=== PATIENT | female | born 1990 | race Caucasian/White ===

== ENCOUNTER 2018-04-05 23:04 | Emergency (ER) | payer BC ==
--- NOTE | 2018-04-06 01:14 | ER Document Report ---
ED Medical Screen (RME) - General Chief Complaint: Urinary Problem Stated Complaint: PAINFUL URINATION Time Seen by Provider: 04/06/18 01:11 Notes: Patient is a 27-year-old female that comes to the emergency department for chief complaint of painful urination for the past 2 days and now she has developed bilateral flank pain, nausea, and chills. She denies vomiting or fever. She denies vaginal bleeding or discharge. She is on control. She denies history of kidney stones. She denies any daily medications. TRAVEL OUTSIDE OF THE [place] IN LAST 30 DAYS: No Physical Exam - Vital signs Vitals: Temp Pulse Resp BP Pulse Ox 98.5 F 75 20 130/78 H 100 04/05/18 23:16 04/05/18 23:16 04/05/18 23:16 04/05/18 23:16 04/05/18 23:16 - Abdominal Tenderness: Tender - Minimal generalized lower abdominal tenderness - Back Back: CVA tenderness - Bilateral mild CVA tenderness Course - Vital Signs Vital signs: Temp Pulse Resp BP Pulse Ox 98.5 F 75 20 130/78 H 100 04/05/18 23:16 04/05/18 23:16 04/05/18 23:16 04/05/18 23:16 04/05/18 23:16
[2018-04-06 04:26] LABS: APPEARANCE,URINE SLIGHTLY-CLOUDY; BILIRUBIN,URINE NEGATIVE (NEGATIVE); COLOR,URINE STRAW; GLUCOSE, URINE NEGATIVE (NEGATIVE); KETONES,URINE NEGATIVE (NEGATIVE); LEUKOCYTE ESTERASE,URINE MODERATE (NEGATIVE); NITRITE,URINE NEGATIVE (NEGATIVE); PROTEIN,URINE 30 mg/dL (NEGATIVE); URINE SPECIFIC GRAVITY 1.012; UROBILINOGEN,URINE NEGATIVE mg/dL (<2.0)
--- NOTE | 2018-04-06 04:58 | ER Document Report ---
ED GI/ - General Chief Complaint: Urinary Problem Stated Complaint: PAINFUL URINATION Time Seen by Provider: 04/06/18 01:11 Notes: Pt. is a 27 year old female c/o dysuria gradually worsening over the last two days. Stated intermittent dysuria yesterday which had increased today and now with urinary frequency. Stated BL lower back pain started this morning as well. Stated throughout the day her lower back pain has increased. Stated she was going to wait to go to PCP in the morning, but the urinary frequency and dull ache in superpubic area brought her to the ED. Pt. denies vaginal d/c or itching. Stated no recent new sexual partners. Denies vomiting or fever. H/O UTI over a year ago stated same symptoms then. PMH: none Meds: OC Allergies: Codeine Surgeries: none LMP: One week ago She denies smoking history, denies illicit drug use, admits to occasional alcohol use. TRAVEL OUTSIDE OF THE [place] IN LAST 30 DAYS: No Past Medical History - General Information source: Patient - Social History Smoking Status: Never Smoker Chew tobacco use (# tins/day): No Frequency of alcohol use: Occasional Drug Abuse: None Lives with: Family Family History: Reviewed & Not Pertinent Patient has suicidal ideation: Yes Patient has homicidal ideation: Yes Renal/ Medical History: Denies: Hx Peritoneal Dialysis Review of Systems - Review of Systems Constitutional: See HPI EENT: No symptoms reported Cardiovascular: No symptoms reported Respiratory: No symptoms reported Gastrointestinal: See HPI Genitourinary: See HPI Female Genitourinary: See HPI Musculoskeletal: No symptoms reported Skin: No symptoms reported Hematologic/Lymphatic: No symptoms reported Neurological/Psychological: No symptoms reported Physical Exam - Vital signs Vitals: Temp Pulse Resp BP Pulse Ox 98.5 F 75 20 130/78 H 100 04/05/18 23:16 04/05/18 23:16 04/05/18 23:16 04/05/18 23:16 04/05/18 23:16 - Notes Notes: GENERAL: Alert, interacts well. No acute distress. HEAD: Normocephalic, atraumatic. EYES: Pupils equal, round, and reactive to light. Extraocular movements intact. ENT: Oral mucosa moist, tongue midline. NECK: Full range of motion. Supple. Trachea midline. LUNGS: Clear to auscultation bilaterally, no wheezes, rales, or rhonchi. No respiratory distress. HEART: Regular rate and rhythm. No murmur ABDOMEN: Soft, non-tender. Non-distended. Bowel sounds present in all 4 quadrants. Minor suprapubic tenderness. EXTREMITIES: Moves all 4 extremities spontaneously. No edema, normal radial and dorsalis pedis pulses bilaterally. No cyanosis. BACK: no cervical, thoracic, lumbar midline tenderness. No saddle anesthesia, normal distal neurovascular exam. Minor BL CVA tenderness. NEUROLOGICAL: Alert and oriented x3. Normal speech. PSYCH: Normal affect, normal mood. SKIN: Warm, dry, normal turgor. No rashes or lesions noted. Course - Re-evaluation Re-evalutation: Discussed with patient urine results. Due to gradual onset of pain and dysuria , no history of kidney stones-that pathology unlikely. We will treat for urinary tract infection. While in emergency room patient stated this afternoon she was a little bit nauseated but did not vomit. Will treat for nausea and pain. Will treat as pyelonephritis. Discussed with patient need to return to the emergency room should she start with a fever, increased abdominal pain, uncontrolled vomiting, or any other concerning symptoms. - Vital Signs Vital signs: Temp Pulse Resp BP Pulse Ox 98.0 F 59 L 16 126/57 H 100 04/06/18 05:24 04/06/18 05:24 04/06/18 05:24 04/06/18 05:24 04/06/18 05:24 - Laboratory Laboratory results interpreted by me: 04/06/18 04:10 Urine Protein 30 H Urine Blood MODERATE H Ur Leukocyte Esterase MODERATE H Discharge - Discharge Clinical Impression: Urinary tract infection Qualifiers: Urinary tract infection type: acute pyelonephritis Qualified Code(s): N10 - Acute pyelonephritis Condition: Stable Disposition: HOME, SELF-CARE Instructions: Cephalexin ([facility]), Urinary Tract Infection ([facility]) Additional Instructions: You have been seen and treated in the emergency room for a urinary tract infection. Please return to the emergency room should you develop a fever, vomiting, increased lower back pain, or abdominal pain. Return with any other concerning symptoms. Please follow-up with your primary care in the next 24-48 hours. Take medications as prescribed. Prescriptions: Ketorolac Tromethamine [Toradol 10 mg Tablet] 10 mg PO Q8HP PRN #24 tablet PRN Reason: Cephalexin Monohydrate [Keflex 500 mg Capsule] 500 mg PO TID #21 capsule
[2018-04-06] MEDS ORDERED: CEFTRIAXONE INJ 1000 MG VIAL IM ONE (04:59)
[2018-04-06] MEDS ORDERED: ONDANSETRON ODT 4 MG TAB (6 TAB/ER DISP) PO PRN (04:59)
[2018-04-06] MEDS ORDERED: KETOROLAC TROMETHAMINE 10 MG TABLET PO ONE (04:59)
[2018-04-06 05:25] VITALS: BP 126/57
== END 2018-04-06 05:25 | disposition home or self-care (01) ==
LOC: ER 23:04
DX: N10 Acute pyelonephritis (principal)
CPT/HCPCS: 99283; 96372; 87086; 81025; 87088; 81001; 87186; J0696; J3490

== ENCOUNTER 2019-02-01 23:49 | Emergency (ER) | payer BC ==
[2019-02-02 00:28] VITALS: BP 139/65
[2019-02-02] MEDS ORDERED: CETIRIZINE 10 MG TABLET PO ONE (01:57)
[2019-02-02] MEDS ORDERED: DEXAMETHASONE 4 MG TABLET PO ONE (01:57)
--- NOTE | 2019-02-02 02:02 | ER Document Report ---
HPI - HPI Time Seen by Provider: 02/02/19 01:56 Pain Level: 4 Context: Patient is a 28-year-old female with a history of frequent sinus infection who presents to the emergency department with head pain and facial pain. Patient states that for 1 week she has had sinus pressure and discomfort. Patient states that does not feel like her normal sinus infections. Patient states she is attempted to use ibuprofen, Flonase and Claritin with minimal relief. Patient states around 9 PM tonight her symptoms started it worse as she felt inflamed inside of her nose as well as around her facial area. Patient denies ear pain, nasal drainage, headache or eye pain. Patient denies fever. - NEURO Neurology: REPORTS: Headache - REPRODUCTIVE Reproductive: DENIES: : Past Medical History - General Information source: Patient - Social History Smoking Status: Never Smoker Cigarette use (# per day): No Frequency of alcohol use: Occasional Drug Abuse: None Lives with: Family Family History: Reviewed & Not Pertinent Patient has suicidal ideation: No Patient has homicidal ideation: No - Past Medical History Cardiac Medical History: Reports: None Pulmonary Medical History: Reports: None EENT Medical History: Reports: Other - frequent sinus infection Neurological Medical History: Reports: None Endocrine Medical History: Reports: None Renal/ Medical History: Reports: None. Denies: Hx Peritoneal Dialysis Malignancy Medical History: Reports: None GI Medical History: Reports: None Musculoskeletal Medical History: Reports None Skin Medical History: Reports None Psychiatric Medical History: Reports: None Traumatic Medical History: Reports: None Infectious Medical History: Reports: None Past Surgical History: Reports: Hx Orthopedic Surgery - lt knee ACL repair Vertical Provider Document - CONSTITUTIONAL Agree With Documented VS: Yes General Appearance: No Apparent Distress Notes: GENERAL: Well-appearing, well-nourished and in no acute distress. HEAD: Atraumatic, normocephalic. EYES: Pupils equal round and reactive to light, extraocular movements intact, sclera anicteric, conjunctiva are normal. ENT: TMs normal, nares patent, oropharynx clear without exudates. Moist mucous membranes. Mild maxillary sinus tenderness. No frontal sinus tenderness. Swollen erythematous turbinates. NECK: Normal range of motion, supple without lymphadenopathy or JVD. LUNGS: Breath sounds clear to auscultation bilaterally and equal. No wheezes rales or rhonchi. HEART: Regular rate and rhythm without murmurs, rubs or gallops. ABDOMEN: Soft, nontender, normoactive bowel sounds. No guarding, no rebound. No masses appreciated. BACK: No cervical, thoracic, lumbar midline tenderness. No saddle anesthesia, normal distal neurovascular exam. GENITOURINARY: Deferred. EXTREMITIES: Normal range of motion, no pitting or edema. No clubbing or cyanosis. NEUROLOGICAL: Cranial nerves II through XII grossly intact. Normal speech, normal gait. PSYCH: Normal mood, normal affect. SKIN: Warm, Dry, normal turgor, no rashes or lesions noted. - INFECTION CONTROL TRAVEL OUTSIDE OF THE [place] IN LAST 30 DAYS: No Course - Re-evaluation Re-evalutation: 02/02/19 02:37 At this time I do not believe that the patient requires an antibiotic for sinus infection. I will refer her to Dr. Eddie SANTIAGO as she states that she needs an ENT in the area. Will place patient on an antihistamine called Zyrtec. Did inform the patient to stop taking the Claritin. Patient to continue to use ibuprofen and Flonase. Patient to return for worsening signs or symptoms to include fever, severe headache, severe pain or any new concerning signs or symptoms. - Vital Signs Vital signs: Temp Pulse Resp BP Pulse Ox 97.9 F 68 18 139/65 H 98 02/02/19 00:22 02/02/19 00:22 02/02/19 00:22 02/02/19 00:22 02/02/19 00:22 Discharge - Discharge Clinical Impression: Sinus pressure Headache Qualifiers: Headache type: unspecified Headache chronicity pattern: unspecified pattern Intractability: not intractable Qualified Code(s): R51 - Headache Condition: Stable Disposition: HOME, SELF-CARE Additional Instructions: Today you were seen in the emergency department for sinus pressure. At this time I do not believe you have a sinus infection that requires an antibiotic. I will give you a dose of steroids prior to discharge as you do have some swelling to the nares (inner nose), and a dose of Zyrtec. I will prescribe you Zyrtec to take daily. This is an antihistamine that will help you with your allergies. Please follow-up with ENT as you do have a history of sinus infections. I will give you a referral to an ENT in the area. Please return to the emergency department if you develop severe headache, fever or any other concerning signs or symptoms. Prescriptions: Cetirizine HCl [Zyrtec 10 mg Tablet] 1 tab PO DAILY #30 tablet Forms: Return to Work Referrals: BIBIANA ZHENG DO [ASSOCIATE] - Follow up as needed
== END 2019-02-02 02:19 | disposition home or self-care (01) ==
LOC: ER 23:49
DX: R09.89 Other specified symptoms and signs involving the circulatory and respiratory systems (principal); R51 Headache; Z86.19 Personal history of other infectious and parasitic diseases
CPT/HCPCS: 99283